=== PATIENT | male | born 1940 | race Caucasian/White ===

== ENCOUNTER 2018-11-21 16:42 | Inpatient (IN) | payer OTHER ==
[2018-11-21] VITALS (15 sets, daily range): BP systolic 89–120; BP diastolic 33–54
[~2018-11-21] VITALS: Ht 180.3 cm; Wt 57.0 kg
[2018-11-21 20:12] LABS: BE(vivo) -8.5 mmol/L (-2 to +3); HCO3 14.8 mmol/L (22.0-26.0); PO2 66.6 mmHg (80.0-100.0); pH 7.406 (7.360-7.450); sO2 93.8 % (92.0-98.0)
[2018-11-21 20:13] LABS: PCO2 24.1 mmHg (35.0-45.0)
[2018-11-21 20:26] LABS: HEMATOCRIT 25.8 % (42.0-52.0); HEMOGLOBIN 8.7 gm/dL (14.0-18.0); MCH 33.7 pg (26.0-34.0); MCHC 33.8 g/dL (28.0-37.0); MCV 99.5 fL (80.0-100.0); PLATELET COUNT 150 thou/uL (150-400); RBC 2.59 mil/uL (4.50-6.00); RDW 15.5 % (10.5-14.5); WBC 9.2 thou/uL (4.0-11.0)
[2018-11-21 20:37] LABS: CALCIUM 8.2 mg/dL (8.5-10.1); CREATININE 1.9 mg/dL (0.7-1.3); POTASSIUM 4.3 mmol/L (3.5-5.1)
[2018-11-21 20:39] LABS: APTT 44.9 Seconds (24.5-32.8); INR 1.3; PROTIME 13.7 Seconds (9.3-11.4)
[2018-11-21 20:42] LABS: ALBUMIN 2.6 g/dL (3.4-5.0); TOTAL BILIRUBIN 0.4 mg/dL (<0.1-1.0); TOTAL PROTEIN 6.1 g/dL (6.4-8.2)
[2018-11-21 20:54] LABS: ABSOLUTE NEUTROPHILS 8.2 thou/uL (1.4-8.2); METAMYELOCYTES 1 %
[2018-11-21 20:55] LABS: ANISOCYTOSIS 1+; LARGE PLATELETS FEW; PLATELET ESTIMATE NORMAL
[2018-11-21 21:53] LABS: URINE BILIRUBIN NEGATIVE (Negative); URINE BLOOD 1+ (Negative); URINE CLARITY CLEAR; URINE COLOR YELLOW; URINE GLUCOSE-RANDOM* NEGATIVE (Negative); URINE KETONES TRACE (Negative); URINE LEUKOCYTES-REFLEX NEGATIVE (Negative); URINE NITRITE-REFLEX NEGATIVE (Negative); URINE PROTEIN (DIPSTICK) TRACE (Negative); URINE SPECIFIC GRAVITY >= 1.030 (1.005-1.035); URINE UROBILINOGEN 0.2 E.U./dl (0.2-1.0)
[2018-11-21 22:10] LABS: SQUAMOUS 0-3 Few /LPF (0-3)
[2018-11-21 22:11] LABS: AMORPHOUS URATES Few /LPF (None Seen); BACTERIA-REFLEX 1-9 Few /HPF (None Seen); HYALINE CASTS 0-3 Few /LPF (None Seen); MUCUS 0-3 Light strn/LPF (None Seen); URINE RBC 3-10 Few /HPF (0-2); URINE WBC-REFLEX 0-5 Rare /HPF (0-5)
[2018-11-22] VITALS (32 sets, daily range): BP systolic 94–148; BP diastolic 42–73
[2018-11-22 00:19] LABS: HEMOGLOBIN 8.5 gm/dL (14.0-18.0); MCH 33.8 pg (26.0-34.0); MCHC 33.9 g/dL (28.0-37.0); MCV 99.8 fL (80.0-100.0); PLATELET COUNT 141 thou/uL (150-400); RBC 2.51 mil/uL (4.50-6.00); RDW 15.1 % (10.5-14.5); WBC 9.7 thou/uL (4.0-11.0)
[2018-11-22 00:34] LABS: ANION GAP 13 mmol/L (7-16); BUN 60 mg/dL (7-18); CALCIUM 8.1 mg/dL (8.5-10.1); CHLORIDE 109 mmol/L (98-107); CO2 17 mmol/L (21-32); CREATININE 1.7 mg/dL (0.7-1.3); GLUCOSE 91 mg/dL (74-106); POTASSIUM 4.2 mmol/L (3.5-5.1); SODIUM 139 mmol/L (136-145); TROPONIN-I <0.06 ng/mL (<0.06)
[2018-11-22 00:58] LABS: ABSOLUTE NEUTROPHILS 8.3 thou/uL (1.4-8.2)
[2018-11-22 01:00] LABS: ANISOCYTOSIS 1+; PLATELET ESTIMATE DECREASED
[2018-11-22] MEDS ORDERED: TYLENOL325 MG PO (01:01)
[2018-11-22] MEDS ORDERED: AMITIZA8 MCG PO (01:02)
[2018-11-22] MEDS ORDERED: XANAX 0.25 MG0.25 MG PO (01:02)
[2018-11-22] MEDS ORDERED: NORVASC5 MG PO (01:03)
[2018-11-22] MEDS ORDERED: LIPITOR 20 MG T20 M1 PO (01:03)
[2018-11-22] MEDS ORDERED: IRON325 PO (01:05)
[2018-11-22] MEDS ORDERED: ELIQUIS2.5 MG PO (01:05)
[2018-11-22] MEDS ORDERED: CALMOSEPTINE OI71 GM (01:05)
[2018-11-22] MEDS ORDERED: SYNTHROID175 MCG PO (01:06)
[2018-11-22] MEDS ORDERED: IPRAT-ALBUT 0.5-3 ML INJECTION (01:06)
[2018-11-22] MEDS ORDERED: LEXAPRO 10 MG T10 M2 PO (01:07)
[2018-11-22] MEDS ORDERED: ANECREAM5 GM TOP (01:08)
[2018-11-22] MEDS ORDERED: PRINIVIL20 M1 PO (01:09)
[2018-11-22] MEDS ORDERED: MIRALAX17 GM PO (01:10)
[2018-11-22] MEDS ORDERED: MEGESTROL40 MG/1 M1 PO (01:10)
[2018-11-22] MEDS ORDERED: NITROGLYCERIN0.4 MG SUBLING (01:14)
[2018-11-22] MEDS ORDERED: [UNRECOGNIZED DRUG - REMARK] PO (01:14)
[2018-11-22] MEDS ORDERED: PANTOPRAZOLE SO40 M1 PO (01:15)
[2018-11-22] MEDS ORDERED: PERCOCET 5-3251 EACH PO (01:15)
[2018-11-22] MEDS ORDERED: PROAIR HFA8.5 GM INH (01:17)
[2018-11-22] MEDS ORDERED: PROMETHAZINE-D473 M1 PO (01:21)
[2018-11-22] MEDS ORDERED: SPIRONOLACTONE25 M1 PO (01:22)
[2018-11-22] MEDS ORDERED: ONDANSETRON HCL4 M2 PO (01:22)
[2018-11-22] MEDS ORDERED: TRELEGY ELLIPT1 EACH INH (01:23)
[2018-11-22 06:48] LABS: CALCIUM 8.1 mg/dL (8.5-10.1); CREATININE 1.6 mg/dL (0.7-1.3); POTASSIUM 4.9 mmol/L (3.5-5.1)
[2018-11-23] VITALS (16 sets, daily range): BP systolic 95–134; BP diastolic 41–80
[2018-11-23 04:34] LABS: ANION GAP 11 mmol/L (7-16); BUN 55 mg/dL (7-18); CALCIUM 8.2 mg/dL (8.5-10.1); CHLORIDE 110 mmol/L (98-107); CO2 16 mmol/L (21-32); CREATININE 1.3 mg/dL (0.7-1.3); GLUCOSE 174 mg/dL (74-106); POTASSIUM 4.8 mmol/L (3.5-5.1); SODIUM 137 mmol/L (136-145); TROPONIN-I <0.06 ng/mL (<0.06)
[2018-11-23 04:46] LABS: ABSOLUTE NEUTROPHILS 7.4 thou/uL (1.4-8.2); BASOPHILS 0.3 % (0.0-2.0); HEMOGLOBIN 7.7 gm/dL (14.0-18.0); LYMPHOCYTES 4.5 % (24.0-44.0); MCH 33.7 pg (26.0-34.0); MCHC 33.5 g/dL (28.0-37.0); MCV 100.6 fL (80.0-100.0); MONOCYTES 5.2 % (1.0-8.0); PLATELET COUNT 142 thou/uL (150-400); RBC 2.28 mil/uL (4.50-6.00); RDW 15.5 % (10.5-14.5); WBC 8.2 thou/uL (4.0-11.0)
--- NOTE | 2018-11-23 10:49 | HC ---
[facility] [place] [address] CONSULTATION Name: ASTRID KISER Room #: 247-P [facility] IN .R.#: [id number] Admission: 11/21/18 ������������������ Attend Phys: Afua Blanton Discharge: ������������������ Date of : 38 Report #: [id number] THIS REPORT FOR: //name// CC: FAM unknown Afua Blanton DATE OF SERVICE: 11/22/2018 INFECTIOUS DISEASES CONSULTATION REASON FOR CONSULTATION: I was asked to evaluate concerning influenza and pneumonia. HISTORY OF PRESENT ILLNESS: The patient is a 78-year-old transferred from [facility] after his admission from senior care with respiratory failure, basilar infiltrate and positive for influenza A. He has had issues with nausea and vomiting. He did have some cough with intermittent sputum production. He had been unable to expectorate since he has been here. No pleuritic chest pain. Onset of symptoms was 3 or 4 days ago. He has had no hemoptysis. There has been no trauma. He has had a previous right lower lobectomy and ORIF of his right rib cage. He has had recurring aspiration-type pneumonia over the last year. He has been senior care bound. Discussed with his daughter pertinent history. The patient remains on high-flow oxygen. He has been alert and cooperative, although he is a poor historian. In addition, he has had issues with esophagitis. No rashes or decubitus. No noted adenopathy. No endocrine issues. Previous cardiac issues with cardiac bypass, but no current syncope or palpitations. No dysuria or frequency. REVIEW OF SYSTEMS: A 10-point review of systems is otherwise negative other than what is described above. ALLERGIES: PENICILLIN, SULFA. THE PATIENT'S DAUGHTER STATES HE DID NOT TOLERATE VANCOMYCIN. AFTER EXTENDED PERIOD OF TIME, HE DEVELOPED A RASH, although he tolerated vancomycin last evening without noted side effect. 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 This was removed in the early . Hyperlipidemia, hypertension, knee surgery, lumbar spine reconstruction surgery, right rib ORIF, right lower lobectomy. FAMILY HISTORY: Noncontributory. SOCIAL HISTORY: Previous smoker, no significant alcohol intake[place] [address] CONSULTATION Name: RASHELASTRID Jame Room #: 247-P [facility] IN [facility]#: [id number] Admission: 11/21/18 ������������������ Attend Phys: Afua Blanton Discharge: ������������������ Date of : 38 Report #: [id number] senior care. PHYSICAL EXAMINATION: VITAL SIGNS: Afebrile, blood pressure 115/46, heart rate 88, respiratory rate 24, on high-flow oxygen. GENERAL: He was alert and cooperative. SKIN: Without rash or decubitus. No palpable adenopathy. HEENT: Eyes without scleral icterus. Mouth: Upper dentures without mucositis or lesion. NECK: Supple, with no thyromegaly or mass. No JVD. LUNGS: Crackles in the left base posteriorly. HEART: Regular, without murmur, gallop or rub. ABDOMEN: Soft, nontender, no hepatosplenomegaly or mass. GENITOURINARY: External genitalia without rash or mass. He did have an indwelling Vidales catheter in place. Perianal examination was unremarkable. He had no decubiti noted. Cranial nerves were intact. Strength in his upper and lower extremities was symmetric. Sensation intact. LABORATORY STUDIES: Sodium 139, potassium 4.9, bicarb is 17, creatinine 1.6. Hemoglobin 8.5; platelet count 141,000; white count 9.7 with 23% bands. Liver function test normal. Procalcitonin 0.85, lactate 1. Troponin negative. Blood culture is negative today. Urinalysis: A few wbc's and a few bacteria. Chest x-ray, left lower lobe infiltrate. Underlying COPD. IMPRESSION: A 78-year-old with underlying chronic obstructive pulmonary disease, coronary artery disease, recurring aspiration pneumonia, presents now with respiratory failure and associated with influenza A. May have aspirated to worsen the situation. He has findings of metabolic acidosis and mild renal insufficiency with a creatinine of 1.6. He has had anemia, left shift of his complete blood count and left lower lobe infiltrate. He is markedly debilitated. Discussion with the patient's daughter, he gets out of bed only minimal amounts. He has evidence of ileus. There was a question of free air at the outside hospital, but imaging here shows no such finding. We will need to follow this over time. He does not appear to have an acute abdomen. RECOMMENDATIONS: We will continue in ICU with full evaluation and support as noted by Pulmonary Medicine. Continue with meropenem, Tamiflu and Zyvox due to reaction he has had previously with vancomycin. MRSA screen. Sputum C and S, Legionella and Strep pneumo antigens. Serial chest x-ray and laboratory studies. ��������������������������������������������� <ELECTRONICALLY SIGNED> ���������������������������������������� By: Jimmy Bell MD ��������������������������������������������� 11/23/18 1049 1152 0102 Jimmy Bell MD /nt
[2018-11-24 04:10] VITALS: BP 130/70
[2018-11-24 05:24] LABS: HEMATOCRIT 25.8 % (42.0-52.0); HEMOGLOBIN 8.9 gm/dL (14.0-18.0); MCH 33.9 pg (26.0-34.0); MCHC 34.6 g/dL (28.0-37.0); MCV 98.1 fL (80.0-100.0); RBC 2.63 mil/uL (4.50-6.00); RDW 15.2 % (10.5-14.5); WBC 9.1 thou/uL (4.0-11.0)
[2018-11-24 05:43] LABS: ALBUMIN 2.1 g/dL (3.4-5.0); CALCIUM 8.1 mg/dL (8.5-10.1); CREATININE 1.1 mg/dL (0.7-1.3); MAGNESIUM 1.7 mg/dL (1.8-2.4); POTASSIUM 3.9 mmol/L (3.5-5.1); TOTAL BILIRUBIN 0.4 mg/dL (<0.1-1.0); TOTAL PROTEIN 5.8 g/dL (6.4-8.2)
[2018-11-24 07:56] VITALS: BP 106/66
[2018-11-24 11:29] VITALS: BP 128/66
== END 2018-11-24 16:46 | DRG 871 ==
LOC: ICU 16:42 → 3W 18:40 → ICU 11-23 08:36 → 3W 11-23 12:56
PROVIDERS: ADMIT Hospitalist
DX: A41.9 Sepsis, unspecified organism (principal); J96.01 Acute respiratory failure with hypoxia; E43 Unspecified severe protein-calorie malnutrition; J69.0 Pneumonitis due to inhalation of food and vomit; J10.00 Influenza due to other identified influenza virus with unspecified type of pneumonia; K56.7 Ileus, unspecified; J44.1 Chronic obstructive pulmonary disease with (acute) exacerbation; Z68.1 Body mass index [BMI] 19.9 or less, adult; I50.9 Heart failure, unspecified; E78.00 Pure hypercholesterolemia, unspecified; I25.10 Atherosclerotic heart disease of native coronary artery without angina pectoris; E11.9 Type 2 diabetes mellitus without complications; I11.0 Hypertensive heart disease with heart failure; E03.9 Hypothyroidism, unspecified; E78.5 Hyperlipidemia, unspecified; E86.9 Volume depletion, unspecified; I71.4 Abdominal aortic aneurysm, without rupture; I48.2 Chronic atrial fibrillation; R65.20 Severe sepsis without septic shock; D64.9 Anemia, unspecified; Z79.899 Other long term (current) drug therapy; Z88.8 Allergy status to other drugs, medicaments and biological substances; Z88.6 Allergy status to analgesic agent; Z88.0 Allergy status to penicillin; Z88.2 Allergy status to sulfonamides; Z95.1 Presence of aortocoronary bypass graft; Z95.0 Presence of cardiac pacemaker; Z82.49 Family history of ischemic heart disease and other diseases of the circulatory system; Z83.6 Family history of other diseases of the respiratory system; Z80.9 Family history of malignant neoplasm, unspecified; Z88.1 Allergy status to other antibiotic agents; Z91.041 Radiographic dye allergy status; Z22.322 Carrier or suspected carrier of Methicillin resistant Staphylococcus aureus
CPT/HCPCS: 10078; 10879

== ENCOUNTER 2018-11-24 17:45 | Emergency (ER) | payer OTHER ==
[~2018-11-24] VITALS: Ht 180.3 cm; Wt 56.7 kg
[~2018-11-24 17:45] MED LIST: AMITIZA8 MCG PO; ANECREAM5 GM TOP; CALMOSEPTINE OI71 GM; ELIQUIS2.5 MG PO; IPRAT-ALBUT 0.5-3 ML INJECTION; IRON325 PO; LEXAPRO 10 MG T10 M2 PO; LIPITOR 20 MG T20 M1 PO; MEGESTROL40 MG/1 M1 PO; MIRALAX17 GM PO; NITROGLYCERIN0.4 MG SUBLING; NORVASC5 MG PO; ONDANSETRON HCL4 M2 PO; PANTOPRAZOLE SO40 M1 PO; PERCOCET 5-3251 EACH PO; PRINIVIL20 M1 PO; PROAIR HFA8.5 GM INH; PROMETHAZINE-D473 M1 PO; SPIRONOLACTONE25 M1 PO; SYNTHROID175 MCG PO; TRELEGY ELLIPT1 EACH INH; TYLENOL325 MG PO; XANAX 0.25 MG0.25 MG PO; [UNRECOGNIZED DRUG - REMARK] PO
[2018-11-24 18:20] LABS: HEMATOCRIT 29.7 % (42.0-52.0); MCH 33.8 pg (26.0-34.0); MCHC 33.8 g/dL (28.0-37.0); RBC 2.97 mil/uL (4.50-6.00); RDW 15.9 % (10.5-14.5); WBC 9.1 thou/uL (4.0-11.0)
[2018-11-24 18:31] LABS: ANION GAP 11 mmol/L (7-16); BUN 45 mg/dL (7-18); CALCIUM 8.5 mg/dL (8.5-10.1); CHLORIDE 107 mmol/L (98-107); CO2 20 mmol/L (21-32); CREATININE 1.2 mg/dL (0.7-1.3); GLUCOSE 136 mg/dL (74-106); POTASSIUM 4.5 mmol/L (3.5-5.1); SODIUM 138 mmol/L (136-145)
[2018-11-24 18:39] LABS: ALBUMIN 2.3 g/dL (3.4-5.0); LIPASE 87 U/L (73-393); SGOT 21 U/L (15-37); SGPT 13 U/L (30-65); TOTAL BILIRUBIN 0.5 mg/dL (<0.1-1.0); TOTAL PROTEIN 6.4 g/dL (6.4-8.2); TROPONIN-I <0.06 ng/mL (<0.06)
[2018-11-24 18:51] LABS: LARGE PLATELETS RARE; PLATELET COUNT 218 thou/uL (150-400)
[2018-11-24 21:55] VITALS: BP 161/83
--- NOTE | 2018-11-25 10:22 | EKG ---
[place] [address] [place] [address] ELECTROCARDIOGRAM REPORT Name: ASTRID KISER [id number] ������������������ Admission: 11/24/18 ������������������ Attend Phys: Discharge: 11/24/18 ������������������ Date of : 38 Report #: [id number] ����������������������������������������������������������������� [id number] THIS REPORT FOR: //name// [facility] ED Test Date: 2018-11-24 Test Time: 17:51:31 Pat Name: ASTRID MUNDO Department: Room: Gender: Manager Front: [facility] : 1940 Requested By: Arcelia Ayala Order Number: [id number] MD: Mundo Carrero Measurements Intervals [place] Rate: 92 P: 34 IL: 123 QRS: 16 QRSD: 106 T: 69 QT: 382 QTc: 473 Interpretive Statements Sinus rhythm Frequent premature ventricular complexes Nonspecific ST segment abnormality No previous ECG available for comparison Electronically Signed On 11-25-2018 10:22:02 CDT by Mundo Carrero [email or web address] ��������������������������������������������� <ELECTRONICALLY SIGNED> ���������������������������������������� By: Mundo Carrero MD, [facility] ��������������������������������������������� 11/25/18 1022 1751 1751 Mundo Carrero MD, FACC /EPI
== END 2018-11-24 21:55 ==
LOC: ER 17:45
PROVIDERS: Nurse Practitioner Family
DX: J11.1 Influenza due to unidentified influenza virus with other respiratory manifestations (principal); I11.0 Hypertensive heart disease with heart failure; I50.9 Heart failure, unspecified; E78.00 Pure hypercholesterolemia, unspecified; E11.9 Type 2 diabetes mellitus without complications; F41.9 Anxiety disorder, unspecified; E78.5 Hyperlipidemia, unspecified; I42.9 Cardiomyopathy, unspecified; I25.10 Atherosclerotic heart disease of native coronary artery without angina pectoris; Z88.1 Allergy status to other antibiotic agents; Z88.5 Allergy status to narcotic agent; Z88.4 Allergy status to anesthetic agent; Z88.8 Allergy status to other drugs, medicaments and biological substances; Z91.041 Radiographic dye allergy status; Z88.0 Allergy status to penicillin; Z88.2 Allergy status to sulfonamides